=== PATIENT | female | born 1985 | race Caucasian/White ===

== ENCOUNTER → 2017-07-30 | Outpatient (CLI) | payer BC ==
--- NOTE | 2017-07-30 15:25 | DIAGNOSTIC IMAGING REPORT ---
SOFT TISS HEAD/NECK-THYROID CLINICAL HISTORY: 31 years-old Female presenting with Z85.850,E03.9 history of thyroidectomy for thyroid cancer. TECHNIQUE: Real-time grayscale and color Doppler ultrasound imaging of the thyroid and base of the neck was performed. COMPARISON: 05/30/2016. FINDINGS: Postsurgical changes of thyroidectomy. Benign appearing lymph nodes in the bilateral anterior cervical chains. The largest node on the right measures 1.4 x 0.4 x 1.3 cm. The largest node on the left measures 1.6 x 0.4 x 0.9 cm. IMPRESSION: Post surgical changes of thyroidectomy. No sonographic evidence of recurrent disease or lymphadenopathy. Electronically signed by: Fred Martin M.D. 07/30/2017 3:24 PM Dictated Date/Time: 07/30/2017 3:13 PM
== END | disposition home or self-care (01) ==
LOC: C.ULTR 13:35
PROVIDERS: ATTEND Internal Medicine Endocrinology, Diabetes & Metabolism
DX: Z85.850 Personal history of malignant neoplasm of thyroid (principal); E89.0 Postprocedural hypothyroidism